=== PATIENT | female | born 1975 | race Hispanic/Latino ===

== ENCOUNTER 2019-06-08 02:34 | Emergency (ER) | payer OTHER ==
[2019-06-08 02:54] LABS: APPEARANCE,URINE Cloudy (CLEAR); BILIRUBIN,URINE Negative (NEGATIVE); COLOR,URINE Dark Yellow (YELLOW); GLUCOSE, URINE (UA) Negative (NEGATIVE); KETONES,URINE Trace mg/dL (NEGATIVE); LEUKOCYTE ESTERASE ,URINE Negative (NEGATIVE); NITRATE,URINE Negative (NEGATIVE); OCCULT BLOOD,URINE Negative (NEGATIVE); PROTEIN,URINE POS 1+ mg/dL (NEGATIVE)
[2019-06-08 03:00] LABS: HCG,QUAL RESULT NEGATIVE (NEGATIVE)
[2019-06-08 03:02] LABS: BASOPHILS % (AUTO) 0.4 % (0.0-5.0); EOSINOPHILS % (AUTO) 0.5 % (0.0-8.0); HEMATOCRIT 37.9 % (36-48); LYMPHOCYTES % (AUTO) 13.2 % (21.0-51.0); MEAN CORPUSCULAR HEMOGLOBIN 32.4 pg (27.0-33.0); MEAN CORPUSCULAR HGB CONC 34.8 g/dL (32.0-36.0); NEUTROPHILS % (AUTO) 81.9 % (40.0-77.0); NUCLEATED RED BLOOD CELLS 0.1 % (0.0-0.19); PLATELET COUNT (AUTO) 216 K/uL (130-400); RED BLOOD CELL COUNT(AUTO) 4.08 MIL/uL (4.00-5.50); RED CELL DISTRIBUTION WIDTH 12.5 % (11.0-15.5); WHITE BLOOD COUNT (AUTO) 7.7 K/uL (4.8-10.8)
[2019-06-08] MEDS ORDERED: ONDANSETRON HCL 4 MG/2 ML VIAL ONE (03:03)
[2019-06-08] MEDS ORDERED: MORPHINE SULFATE 4 MG/1ML SYG ONE (03:04)
[2019-06-08 03:14] LABS: POTASSIUM 4.1 mmol/L (3.5-5.1)
[2019-06-08 03:19] LABS: ALBUMIN 4.3 g/dL (3.5-5.0); BILIRUBIN,TOTAL 0.3 mg/dL (0.2-1.0); TOTAL PROTEIN, SERUM 7.9 g/dL (6.0-8.3)
[2019-06-08 03:19] LABS: AMORPHOUS SEDIMENT,UR Moderate /LPF (None Seen); BACTERIA,URINE Moderate /HPF (None Seen); RBC,URINE 0-1 /HPF (0-1); SQUAMOUS EPITHELIAL CELL,UR 0-2 /HPF (0-2); WBC,URINE 0-1 /HPF (0-1)
== END 2019-06-08 04:53 | disposition home or self-care (01) ==
LOC: EDH 02:34
DX: K80.80 Other cholelithiasis without obstruction (principal)
CPT/HCPCS: 36415; 76705; 80053; 81001; 81025; 83690; 85025; 96374; 96375; 99285; J2270; J2405

== ENCOUNTER 2021-03-17 03:08 | Observation (INO) | payer BC, OTHER ==
[~2021-03-17] VITALS: Ht 165.1 cm; Wt 88.5 kg
[2021-03-17] MEDS ORDERED: ONDANSETRON HCL 4 MG/2 ML VIAL ONE (03:34)
[2021-03-17 03:37] LABS: APPEARANCE,URINE Clear (CLEAR); BILIRUBIN,URINE Negative (NEGATIVE); COLOR,URINE Yellow (YELLOW); GLUCOSE, URINE (UA) Negative (NEGATIVE); KETONES,URINE Negative (NEGATIVE); LEUKOCYTE ESTERASE ,URINE Negative (NEGATIVE); NITRATE,URINE Negative (NEGATIVE); OCCULT BLOOD,URINE Trace (NEGATIVE); PROTEIN,URINE Trace mg/dL (NEGATIVE)
[2021-03-17 03:45] LABS: BACTERIA,URINE Rare /HPF (None Seen); RBC,URINE 0-1 /HPF (0-1); SQUAMOUS EPITHELIAL CELL,UR Few /HPF (0-2); WBC,URINE None Seen /HPF (0-1)
[2021-03-17 03:47] LABS: HCG,QUAL RESULT NEGATIVE (NEGATIVE)
[2021-03-17] MEDS ORDERED: MORPHINE SULFATE 4 MG/1ML SYG ONE ×2 (03:54→04:54)
[2021-03-17 04:00] LABS: BASOPHILS % (AUTO) 0.6 % (0.0-5.0); EOSINOPHILS % (AUTO) 2.3 % (0.0-8.0); HEMATOCRIT 38.4 % (36-48); LYMPHOCYTES % (AUTO) 29.4 % (21.0-51.0); MEAN CORPUSCULAR HEMOGLOBIN 30.6 pg (27.0-33.0); MEAN CORPUSCULAR HGB CONC 34.1 g/dL (32.0-36.0); MEAN CORPUSCULAR VOLUME 89.7 fL (79-99); MONOCYTES % (AUTO) 4.8 % (3.0-13.0); NEUTROPHILS % (AUTO) 62.4 % (40.0-77.0); PLATELET COUNT (AUTO) 254 K/uL (130-400); RED BLOOD CELL COUNT(AUTO) 4.28 MIL/uL (4.00-5.50); WHITE BLOOD COUNT (AUTO) 8.4 K/uL (4.8-10.8)
[2021-03-17 04:12] LABS: CREATININE 0.9 mg/dL (0.5-1.5)
[2021-03-17 04:16] LABS: ALBUMIN 3.9 g/dL (3.5-5.0); BILIRUBIN,TOTAL 0.4 mg/dL (0.2-1.0); TOTAL PROTEIN, SERUM 7.8 g/dL (6.0-8.3)
[2021-03-17] MEDS ORDERED: SODIUM CHLORIDE 0.9% 50 ML IV ONE (08:21)
[2021-03-17] MEDS ORDERED: KETOROLAC TROMETHAMINE 30MG/ML ONE (08:21)
[2021-03-17] MEDS ORDERED: PROMETHAZINE HCL 25 MG/ML 1ML AMPULE IM PRN (08:45)
[2021-03-17] MEDS ORDERED: MORPHINE SULFATE 2 MG/ML 1ML SYG IVP PRN (08:45)
[2021-03-17 08:51] LABS: BILIRUBIN,DIRECT 0.1 mg/dL (0.0-0.3); BILIRUBIN,TOTAL 0.4 mg/dL (0.2-1.0); TOTAL PROTEIN, SERUM 7.5 g/dL (6.0-8.3)
[2021-03-17] MEDS ORDERED: FAMOTIDINE/PF 20 MG/2 ML VIAL IV ONE (10:50)
[2021-03-17] MEDS ORDERED: ACETAMINOPHEN 325 MG TAB ONE (16:59)
[2021-03-18] MEDS ORDERED: ACETAMINOPHEN 325 MG TAB ONE (04:22)
[2021-03-18] MEDS ORDERED: ONDANSETRON HCL 4 MG/2 ML VIAL ONE (04:23)
[2021-03-18 04:46] LABS: BASOPHILS % (AUTO) 0.5 % (0.0-5.0); EOSINOPHILS % (AUTO) 1.3 % (0.0-8.0); HEMATOCRIT 38.2 % (36-48); LYMPHOCYTES % (AUTO) 30.9 % (21.0-51.0); MEAN CORPUSCULAR HEMOGLOBIN 31.4 pg (27.0-33.0); MEAN CORPUSCULAR HGB CONC 34.8 g/dL (32.0-36.0); MEAN CORPUSCULAR VOLUME 90.3 fL (79-99); MONOCYTES % (AUTO) 7.5 % (3.0-13.0); NEUTROPHILS % (AUTO) 59.5 % (40.0-77.0); PLATELET COUNT (AUTO) 234 K/uL (130-400); RED BLOOD CELL COUNT(AUTO) 4.23 MIL/uL (4.00-5.50); WHITE BLOOD COUNT (AUTO) 9.3 K/uL (4.8-10.8)
[2021-03-18 04:59] LABS: ALBUMIN 3.8 g/dL (3.5-5.0); BILIRUBIN,TOTAL 0.8 mg/dL (0.2-1.0); CREATININE 0.8 mg/dL (0.5-1.5); POTASSIUM 3.7 mmol/L (3.5-5.1); TOTAL PROTEIN, SERUM 7.6 g/dL (6.0-8.3)
[2021-03-18 06:07] VITALS: BP 124/70
[2021-03-18] MEDS: SODIUM CHLORIDE 0.9% 1000ML 1,000 ML IV SCH ×2 (07:04→18:52)
[2021-03-18 07:43] VITALS: BP 107/59
[2021-03-18] MEDS: FAMOTIDINE/PF 20 MG/2 ML VIAL IV SCH ×2 (09:05→21:28)
[2021-03-18] MEDS: ACETAMINOPHEN 325 MG TAB PO PRN ×2 (09:14→17:37)
[2021-03-18 15:16] VITALS: BP 123/77
[2021-03-18] MEDS ORDERED: ACETAMINOPHEN 325 MG TAB PO ONE (19:00)
[2021-03-18 19:19] VITALS: BP 120/63
[2021-03-18] MEDS: ACETAMINOPHEN EXTRA STRENGTH 500 MG TABLET PO PRN (23:05)
[2021-03-18 23:49] VITALS: BP 107/57
[2021-03-19] VITALS (18 sets, daily range): BP systolic 114–168; BP diastolic 62–95
[2021-03-19 04:26] LABS: BASOPHILS % (AUTO) 0.5 % (0.0-5.0); EOSINOPHILS % (AUTO) 4.1 % (0.0-8.0); HEMATOCRIT 35.4 % (36-48); LYMPHOCYTES % (AUTO) 34.9 % (21.0-51.0); MEAN CORPUSCULAR HEMOGLOBIN 30.3 pg (27.0-33.0); MEAN CORPUSCULAR HGB CONC 33.3 g/dL (32.0-36.0); MONOCYTES % (AUTO) 5.8 % (3.0-13.0); NEUTROPHILS % (AUTO) 54.2 % (40.0-77.0); PLATELET COUNT (AUTO) 214 K/uL (130-400); RED BLOOD CELL COUNT(AUTO) 3.89 MIL/uL (4.00-5.50); WHITE BLOOD COUNT (AUTO) 6.3 K/uL (4.8-10.8)
[2021-03-19 04:35] LABS: CREATININE 0.8 mg/dL (0.5-1.5); POTASSIUM 3.4 mmol/L (3.5-5.1)
[2021-03-19] MEDS: SODIUM CHLORIDE 0.9% 1000ML 1,000 ML IV SCH ×3 (04:50→20:24)
[2021-03-19] MEDS: FAMOTIDINE/PF 20 MG/2 ML VIAL IV SCH ×2 (08:09→20:40)
[2021-03-19] MEDS: ACETAMINOPHEN EXTRA STRENGTH 500 MG TABLET PO PRN (10:22)
[2021-03-19] MEDS ORDERED: POTASSIUM CHLORIDE 20MEQ/100ML 100 ML IV PRN ×2 (11:00)
[2021-03-19] MEDS ORDERED: POTASSIUM CHLORIDE 20 MEQ ERTAB PO PRN (11:00)
[2021-03-19] MEDS: CEFTRIAXONE SODIUM 1 GM IVP SCH ×2 (11:55→23:32)
[2021-03-19] MEDS: METRONIDAZOLE 500MG/100ML BAG 100 ML IVPB SCH ×2 (14:10→22:05)
[2021-03-19] MEDS ORDERED: PROPOFOL 10 MG/ML 20ML VIAL IV ONE (17:27)
[2021-03-19] MEDS ORDERED: MIDAZOLAM HCL 1 MG/ML 2ML VIAL ONE (17:27)
[2021-03-19] MEDS ORDERED: ROCURONIUM 10MG/1ML SYR 10 MG/ML ML ONE (17:27)
[2021-03-19] MEDS ORDERED: FENTANYL CITRATE PF 50 MCG/1 ML 2ML VIAL ONE (17:28)
[2021-03-19] MEDS ORDERED: BUPIVACAINE/PF 0.5% 30ML VIAL ONE (17:47)
[2021-03-19] MEDS ORDERED: GLYCOPYRROLATE 1 MG/5 ML SYRINGE ONE (18:07)
[2021-03-19] MEDS ORDERED: NEOSTIGMINE 5MG/5ML SYR IV ONE (18:07)
[2021-03-19] MEDS ORDERED: MEPERIDINE-PF 25 MG/ML SYG ONE ×2 (18:33→18:48)
[2021-03-19] MEDS ORDERED: METOCLOPRAMIDE 10 MG/2 ML VIAL ONE (18:35)
[2021-03-19] MEDS: ONDANSETRON HCL 4 MG/2 ML VIAL IVP PRN ×2 (18:40→18:41)
[2021-03-19] MEDS ORDERED: KETOROLAC TROMETHAMINE 30MG/ML ONE (18:48)
[2021-03-19] MEDS: POTASSIUM CHLORIDE 10% ELIXIR 20 MEQ/15 ML UDCUP PO PRN ×2 (20:40→23:07)
[2021-03-20] MEDS ORDERED: LACTATED RINGERS 1000ML 1,000 ML IV SCH (02:00)
[2021-03-20] MEDS: SODIUM CHLORIDE 0.9% 1000ML 1,000 ML IV SCH (02:01)
[2021-03-20 03:33] VITALS: BP 122/79
[2021-03-20 04:41] LABS: BASOPHILS % (AUTO) 0.2 % (0.0-5.0); EOSINOPHILS % (AUTO) 0.2 % (0.0-8.0); HEMATOCRIT 32.4 % (36-48); LYMPHOCYTES % (AUTO) 19.7 % (21.0-51.0); MEAN CORPUSCULAR HEMOGLOBIN 29.9 pg (27.0-33.0); MEAN CORPUSCULAR VOLUME 90.5 fL (79-99); MONOCYTES % (AUTO) 6.6 % (3.0-13.0); NEUTROPHILS % (AUTO) 72.8 % (40.0-77.0); PLATELET COUNT (AUTO) 233 K/uL (130-400); RED BLOOD CELL COUNT(AUTO) 3.58 MIL/uL (4.00-5.50); RED CELL DISTRIBUTION WIDTH 11.9 % (11.0-15.5); WHITE BLOOD COUNT (AUTO) 8.1 K/uL (4.8-10.8)
[2021-03-20 04:50] LABS: BILIRUBIN,TOTAL 0.4 mg/dL (0.2-1.0); CREATININE 0.8 mg/dL (0.5-1.5); TOTAL PROTEIN, SERUM 6.6 g/dL (6.0-8.3)
[2021-03-20] MEDS: METRONIDAZOLE 500MG/100ML BAG 100 ML IVPB SCH (05:26)
[2021-03-20 07:22] VITALS: BP 116/70
[2021-03-20] MEDS: ACETAMINOPHEN EXTRA STRENGTH 500 MG TABLET PO PRN ×2 (07:31→11:14)
[2021-03-20] MEDS: FAMOTIDINE/PF 20 MG/2 ML VIAL IV SCH (09:29)
[2021-03-20 11:10] VITALS: BP 103/66
[2021-03-20] MEDS: CEFTRIAXONE SODIUM 1 GM IVP SCH (11:13)
[2021-03-20] MEDS ORDERED: IBUPROFEN 800 MG TAB PO PRN (12:00)
[2021-03-20] MEDS ORDERED: FLUT16H NASAL (12:01)
[2021-03-20] MEDS ORDERED: LORA10CA PO (12:01)
[2021-03-20] MEDS ORDERED: AMOX-429 PO (12:01)
[2021-03-20] MEDS ORDERED: IBUP-2077 PO (12:02)
== END 2021-03-20 13:55 | disposition home or self-care (01) ==
LOC: EDH 03:08 → EDHIP 08:31 → WSH 03-18 05:20
PROVIDERS: ADMIT Hospitalist; ATTEND Hospitalist
DX: K80.00 Calculus of gallbladder with acute cholecystitis without obstruction (principal); E66.9 Obesity, unspecified; R79.89 Other specified abnormal findings of blood chemistry; Z68.32 Body mass index [BMI] 32.0-32.9, adult
CPT/HCPCS: 36415 ×4; 47562; 76705; 78226; 80048; 80053 ×3; 81001; 81025; 83690; 85025 ×4; 96361 ×3; 96365; 96366 ×2; 96375 ×2; 96376 ×3; 99284; A4344; A4510 ×2; A4649 ×2; A9537; C1769 ×3; G0378 ×75; J0696 ×3; J1885 ×2; J2175 ×2; J2250; J2270 ×2; J2405 ×3; J2704; J2710; J2765; J3010; J3490 ×11; J7030 ×2; J7120 ×2; 80076